=== PATIENT | female | born 1985 | race Caucasian/White ===

== ENCOUNTER 2021-10-27 23:45 | Inpatient (IN) | payer OTHER ==
[2021-10-28] MEDS ORDERED: TERBUTALINE 1 MG/ML VIAL SQ PRN (00:13)
[2021-10-28] MEDS ORDERED: LIDOCAINE 0.5% (PF) 5 MG/ML (50 ML SDV) SQ PRN (00:13)
[2021-10-28] MEDS ORDERED: METHYLERGONOVINE 0.2 MG/ML 1 ML AMP IM PRN (00:13)
[2021-10-28] MEDS ORDERED: CARBOPROST TROMETHAMINE 250 MCG/ML 1 ML AMP IM PRN (00:13)
[2021-10-28] MEDS ORDERED: OXYTOCIN 10 UNIT/ML 1 ML VIAL IM PRN (00:13)
[2021-10-28] MEDS ORDERED: LACTATED RINGERS 1,000 ML IV SCH ×2 (00:15→02:15)
[2021-10-28 00:44] LABS: Basophils # (A) 0.1 k/uL (0-0.2); Basophils % (A) 0 %; Eosinophils # (A) 0.3 k/uL (0-0.7); Eosinophils % (A) 2 %; HCT 30.7 % (34.0-46.0); HGB 9.9 gm/dL (11.4-16.0); Hypochromasia Slight; Lymphocytes # (A) 3.7 k/uL (1.0-4.8); Lymphocytes % (A) 21 %; MCH 29.7 pg (25.0-35.0); MCHC 32.5 g/dL (31.0-37.0); MCV 91.5 fL (80.0-100.0); Mean Platelet Volume 7.7; Monocytes # (A) 0.6 k/uL (0-1.0); Monocytes % (A) 4 %; Neutrophils # (A) 12.9 k/uL (1.3-7.7); Neutrophils % (A) 72 %; Platelet Count 429 k/uL (150-450); RBC 3.35 m/uL (3.80-5.40); RDW 14.8 % (11.5-15.5)
[2021-10-28] MEDS ORDERED: NALBUPHINE 10 MG/ML (1 ML AMP) ONE (01:11)
[2021-10-28] MEDS ORDERED: MORPHINE SULFATE (PF) 0.3 MG/0.3 ML SYR ONE (01:11)
[2021-10-28] MEDS ORDERED: ONDANSETRON 4 MG/2 ML VIAL ONE (01:11)
[2021-10-28] MEDS ORDERED: KETOROLAC 15 MG/ML 1 ML VIAL ONE (01:11)
--- NOTE | 2021-10-28 01:56 | P.HPOB ---
History of Present Illness H&P Date: 10/28/21 Chief Complaint: spontaneous rupture of membranes this is a 36-year-old 8 para 0524 woman with an estimated due date of 11/25/2021 who presents at 36 and one sevenths weeks gestation with spontaneous rupture of membranes and active labor. Her obstetrical history is significant for 4 previous sections. She has requested bilateral tubal ligation at the time of repeat . Her has been otherwise remarkable. On 20 week ultrasound she is noted to have an anterior placenta. Obstetrical history section 2004 36 weeks, 2008 36 weeks, 2012 34 weeks, 2013 at 36 weeks with a placental abruption and infant demise, 2019 36 weeks. Laboratory data: Blood type A+, antibody screen negative, rubella immune, VDRL nonreactive, hepatitis B surface antigen negative, HIV negative, gonorrhea and clinic cultures negative, maternal T 21 testing negative, 1 hour glucose tolerance testing abnormal, 3 hour within normal limits. Group B strep unknown. Review of Systems All systems: negative Past Medical History History of Any Multi-Drug Resistant Organisms: None Reported Additional Past Surgical History / Comment(s): 4. section Smoking Status: Current every day smoker Medications and Allergies Home Medications Medication Instructions Recorded Confirmed Type No Known Home Medications 10/28/21 10/28/21 History Allergies Allergy/AdvReac Type Severity Reaction Status Date / Time adhesive tape Allergy Rash/Hives Verified 10/28/21 00:13 latex Allergy Rash/Hives Verified 10/28/21 00:13 Exam Intake and Output 10/27/21 10/27/21 10/28/21 14:59 22:59 06:59 Other: Weight 67.132 kg this is a uncomfortable, actively laboring female who is visibly gravid. Targeted physical exam is performed. Rupture of membranes is confirmed by amnio sure test. The cervix is fingertip dilated. She is mariah every 2-4 minutes spontaneously. heart tones are currently reassuring with no repetitive heart rate decelerations. Results Result Diagrams: 10/28/21 00:30 Abnormal Lab Results - Last 24 Hours (Table) 10/28/21 Range/Units 00:30 WBC 18.0 H (3.8-10.6) k/uL RBC 3.35 L (3.80-5.40) m/uL Hgb 9.9 L (11.4-16.0) gm/dL Hct 30.7 L (34.0-46.0) % Neutrophils # 12.9 H (1.3-7.7) k/uL Assessment and Plan (1) 36 weeks gestation of Current Visit: Yes Status: Acute Code(s): Z3A.36 - 36 WEEKS GESTATION OF SNOMED Code(s): 17005264 (2) Advanced maternal age (AMA) in Current Visit: Yes Status: Acute Code(s): MWJ3115 - SNOMED Code(s): 272723270 (3) History of Current Visit: Yes Status: Acute Code(s): Z98.891 - HISTORY OF UTERINE SCAR FROM PREVIOUS SURGERY SNOMED Code(s): 302683226 (4) Family planning Current Visit: Yes Status: Acute Code(s): Z30.09 - ENCOUNTER FOR [facility] GENERAL CNSL AND ADVICE ON CONTRACEPTION SNOMED Code(s): 718839150 (5) Spontaneous rupture of membranes Current Visit: Yes Status: Acute Code(s): LJJ7246 - SNOMED Code(s): 785018130 Plan: 36-year-old 8 para 5024 woman with a history of 5 previous low transverse sections. She is admitted with spontaneous rupture of membranes and active labor. Plan is for repeat low transverse section. She is planning a bilateral tubal ligation and consents are obtained. The procedure was reviewed in detail with the patient and her partner. She was extensively counseled that this of multiple C-sections are increased. Those risks include bleeding, transfusion, hemorrhage, hysterectomy, damage to bowel, bladder, ureters and the . The patient verbalizes understanding of these risks. Consent is obtained. Of note on ultrasound there is an anterior placenta at 20 weeks. surgical team aware of possible bleeding risks with this procedure.
[2021-10-28] MEDS ORDERED: LANOLIN CREAM 5 GM TUBE TOPICAL PRN (02:01)
[2021-10-28] MEDS ORDERED: SIMETHICONE 80 MG CHEWABLE PO PRN (02:01)
[2021-10-28] MEDS ORDERED: ONDANSETRON 4 MG/2 ML VIAL IVP PRN (02:01)
[2021-10-28] MEDS ORDERED: METOCLOPRAMIDE 5 MG/ML 2 ML VIAL IVP PRN (02:01)
[2021-10-28] MEDS ORDERED: diphenhydrAMINE 50 MG CAP PO PRN (02:01)
[2021-10-28] MEDS ORDERED: diphenhydrAMINE 25 MG CAP PO PRN (02:01)
[2021-10-28] MEDS ORDERED: ZOLPIDEM 5 MG TAB PO PRN (02:01)
[2021-10-28] MEDS ORDERED: NALOXONE 0.4 MG/ML 1 ML VIAL IV PRN ×2 (02:01→08:46)
[2021-10-28] MEDS ORDERED: HYDROmorphone 1 MG/ML 1 ML SYRINGE IVP PRN (02:01)
[2021-10-28] MEDS ORDERED: diphenhydrAMINE 50 MG/ML 1 ML VIAL IVP PRN ×2 (02:01)
--- NOTE | 2021-10-28 02:01 | P.OP ---
Date of Procedure: 10/28/21 Preoperative Diagnosis: spontaneous rupture of membranes at 36 and one sevenths weeks gestation History of previous low transverse section 5 desires permanent sterility sterility Advanced maternal age Postoperative Diagnosis: same Procedure(s) Performed: repeat low transverse section with bilateral tubal ligation Anesthesia: spinal Surgeon: Nelia Monreal [employer] Director #1: Nikolas Braswell Estimated Blood Loss (ml): 300 IV fluids (ml): 800 Urine output (ml): 400 Pathology: other (placenta) Condition: stable Disposition: floor Indications for Procedure: continuous rupture of membranes at 36 and one sevenths weeks gestation, history of previous low transverse section 5, desires permanent sterility. Operative Findings: female infant in the occiput posterior position with Apgars of 8 at 1 minute and 9 at 5 minutes weighing 6 lbs. 2 oz., 2780 g. Extensive scarring of the anterior abdominal wall fascia. Very thin low uterine segment. Normal- appearing bilateral fallopian tubes and ovaries. Calcified placenta. Description of Procedure: After the patient was met preoperatively and all questions were answered, she was taken to the operating room where spinal anesthetic was administered without incident. She was then positioned, prepped and draped in the dorsal supine position with a leftward tilt. Mcneal catheter was placed. After anesthetic was confirmed adequate, a low transverse skin incision was made following the pre- existing scar. This was carried down to the underlying fascia both sharply and with the electrocautery. The fascia was then incised in the midline and extended bilaterally with the Sandra scissors. the fascia was thick and scarred. The superior aspect of the fascial incision was elevated and the underlying rectus muscles dissected off sharply and with the electrocautery. The inferior aspect of the fascial incision was also elevated and the underlying rectus muscles dissected off sharply. The muscles were adherent in the midline. These were bluntly and the peritoneum was tented up with hemostats. The peritoneum was entered sharply with the Metzenbaum scissors. The peritoneal incision was extended inferiorly and superiorly with good visualization of the bladder. the low uterine segment is noted to be very thin in appearance. The bladder blade was placed. The vesicouterine peritoneum was identified, tented up and entered sharply, the bladder flap was created both sharply and digitally. A low transverse uterine incision was then made sharply and carried down to the underlying amniotic membranes. Membranes were ruptured and clear fluid was noted. The uterine incision was extended bilaterally bluntly. The 's head was delivered from the incision without difficulty. The nose and mouth were bulb suctioned. The rest of the was delivered onto the field without difficulty. And cut and the infant was taken to the warmer. An intact, three-vessel cord placenta was then manually removed and the uterus was exteriorized. The uterus was cleared of all clot and debris. The uterine incision was delineated with Goldsmith clamps. The uterine incision was then closed in a running locked fashion with 0 Vicryl suture. Additional [id number] sutures were placed where necessary along the incision for hemostasis. The right and left fallopian tubes were positively identified and carried out to the fimbriated ends. Filshie clip clips were then applied in the mid ampullary portion of the tubes completely transecting each tube. The uterus was then returned to the abdomen and the gutters were cleared of all clot and debris. The uterine incision was reinspected and Bovie electrocautery was utilized were necessary for hemostasis. a piece of Interceed was placed over the incision. The fascial edges, peritoneal edges and rectus muscles were inspected and Bovie electrocautery utilized were necessary for hemostasis. The fascia was then closed in a running fashion with 0 Vicryl suture. The subcuticular tissue was copiously suction irrigated and Bovie electrocautery utilized were necessary for hemostasis. 3-0 Vicryl suture was utilized to reapproximate the subcuticular tissue. The skin was then closed with alicia. All counts reported to me as correct by the operating room staff at the end of the procedure. The patient received antibiotics preoperatively and Pitocin following cord clamp. Mother and were both transported from the room in stable condition.
[2021-10-28] MEDS ORDERED: OXYTOCIN 30 UNITS/500 ML NS 30 UNIT in SALINE 1 500ML.BAG IV SCH (02:15)
[2021-10-28] MEDS ORDERED: MORPHINE SULFATE 2 MG/ML SYRINGE IVP STA (04:20)
[2021-10-28] MEDS ORDERED: ACETAMINOPHEN IV (For NPO) 1,000 MG in EMPTY BAG 1 BAG IVPB SCH (06:00)
[2021-10-28] MEDS ORDERED: MORPHINE SULFATE 2 MG/ML SYRINGE IVP PRN (06:02)
[2021-10-28] MEDS: SENNOSIDES-DOCUSATE SODIUM 1 EACH TAB PO SCH ×2 (08:53→20:14)
--- NOTE | 2021-10-28 11:10 | P.PN ---
Progress Note - Text Progress Note Date: 10/28/21 Late entry from 8 AM. Patient status post repeat low transverse section and bilateral tubal ligation completed approximately 2 AM. She received a Duramorph spinal. She is complaining of severe 10 out of 10 right sided pain. She has received IV counseled or, Toradol, morphine and oral oxycodone 1. Her pain is now better controlled. On exam she is standing by the bedside. She is able to move into the bed with minimal difficulty. She has point tenderness in the right fundal region of the uterus. The uterus is firm and the abdomen is nondistended. Her incision is dry and intact. She has scant lochia. She had 1600 M hours and the Mcneal catheter prior to removal which was clear. My assessment is in adequate postoperative pain control. Patient reports she had this issue with sections in the past. She will continue with when necessary IV morphine, scheduled by mouth ibuprofen, Tylenol and oxycodone. Patient is reassured and all questions are answered.
[2021-10-28] MEDS: IBUPROFEN 600 MG TAB PO SCH ×2 (11:25→17:33)
[2021-10-28] MEDS: ACETAMINOPHEN TAB 500 MG TAB PO SCH ×3 (11:53→20:11)
[2021-10-28] MEDS ORDERED: IBUPROFEN IV 800 MG in SODIUM CHLORIDE 0.9% 250 ML IV SCH (12:00)
[2021-10-28] MEDS ORDERED: ONDANSETRON 4 MG TAB PO PRN (14:14)
[2021-10-28 21:29] VITALS: RESP 16
[2021-10-29] MEDS: IBUPROFEN 600 MG TAB PO SCH ×4 (02:21→16:21)
[2021-10-29] MEDS: ACETAMINOPHEN TAB 500 MG TAB PO SCH ×4 (05:19→20:04)
[2021-10-29 08:02] LABS: Basophils # (A) 0.1 k/uL (0-0.2); Basophils % (A) 1 %; Eosinophils # (A) 0.3 k/uL (0-0.7); Eosinophils % (A) 3 %; HCT 25.6 % (34.0-46.0); Hypochromasia Slight; Lymphocytes # (A) 2.5 k/uL (1.0-4.8); Lymphocytes % (A) 20 %; MCH 30.2 pg (25.0-35.0); MCHC 32.2 g/dL (31.0-37.0); MCV 93.9 fL (80.0-100.0); Mean Platelet Volume 7.9; Monocytes # (A) 0.6 k/uL (0-1.0); Monocytes % (A) 5 %; Neutrophils # (A) 8.3 k/uL (1.3-7.7); Neutrophils % (A) 69 %; Platelet Count 369 k/uL (150-450); Poikilocytosis Slight; RBC 2.73 m/uL (3.80-5.40); RDW 14.8 % (11.5-15.5)
[2021-10-29 08:03] LABS: HGB 8.2 gm/dL (11.4-16.0)
[2021-10-29] MEDS: SENNOSIDES-DOCUSATE SODIUM 1 EACH TAB PO SCH ×2 (08:23→20:04)
--- NOTE | 2021-10-29 10:13 | P.PNOBGPC ---
Subjective - Subjective Principal diagnosis: Repeat Interval history: Pain better controlled overnight with oral ibuprofen and oxycodone when necessary. Patient reports: Reports appetite normal, Reports voiding normally, Reports ambulating normally : doing well (Cultures pending for group B strep status unknown.) Objective - Vital Signs Latest vital signs: Vital Signs Temp Pulse Resp BP 10/29/21 08:00 98.6 F 66 16 110/73 10/29/21 00:00 98.0 F 70 16 110/74 10/28/21 20:00 98.4 F 71 16 114/80 10/28/21 16:00 98.5 F 70 14 110/75 10/28/21 13:00 16 10/28/21 12:00 98.0 F 69 14 117/75 10/28/21 11:46 14 Intake and Output 10/28/21 10/29/21 10/29/21 22:59 06:59 14:59 Other: # Voids 1 2 - Exam Extremities: Present: normal. Absent: edema Abdomen: Present: normal appearance, soft, tenderness. Absent: distention Incision: Present: normal, dry, intact (Alicia) Uterus: Present: normal, firm, tenderness - Labs Labs: Abnormal Lab Results - Last 24 Hours (Table) 10/29/21 Range/Units 06:54 WBC 12.0 H (3.8-10.6) k/uL RBC 2.73 L (3.80-5.40) m/uL Hgb 8.2 L D (11.4-16.0) gm/dL Hct 25.6 L (34.0-46.0) % Neutrophils # 8.3 H (1.3-7.7) k/uL Assessment and Plan (1) 36 weeks gestation of Current Visit: Yes Status: Acute Code(s): Z3A.36 - 36 WEEKS GESTATION OF SNOMED Code(s): 48834185 (2) Advanced maternal age (AMA) in Current Visit: Yes Status: Acute Code(s): LLQ5227 - SNOMED Code(s): 657963377 (3) History of Current Visit: Yes Status: Acute Code(s): Z98.891 - HISTORY OF UTERINE SCAR FROM PREVIOUS SURGERY SNOMED Code(s): 198039870 (4) Family planning Current Visit: Yes Status: Acute Code(s): Z30.09 - ENCOUNTER FOR [facility] GENERAL CNSL AND ADVICE ON CONTRACEPTION SNOMED Code(s): 417996269 (5) Spontaneous rupture of membranes Current Visit: Yes Status: Acute Code(s): UFA2107 - SNOMED Code(s): 445135406 Plan: Postop day 1 status post repeat low transverse section and bilateral tubal ligation. She had initially very poor pain control however this has improved. She strongly desires discharge home from the hospital at this time. The 's blood cultures are still pending. She is less than 36 hours from a repeat that was her 6th section. I counseled the patient and the father of the baby that I am surgically not clearing her for discharge this soon based on the difficult nature of her procedure, her ongoing issues with pain management and the gestational age of the . She will be reevaluated tomorrow on postop day 2 and if deemed stable can be discharged home. She also has alicia in place as her scarring was too thick for adequate closure with a subcuticular stitch. These are not yet ready to come out.
--- NOTE | 2021-10-29 11:38 | P.PN ---
Progress Note - Text Date: 10/29/2021 Time: 11:37 The patient is status post section Vital signs stable VAS:0-10 Patient has no complaints of pain. The patient incurred some minimal itching yesterday, this itching is now subsiding. Pain meds to be managed by service.
[2021-10-30] MEDS: ACETAMINOPHEN TAB 500 MG TAB PO SCH ×2 (02:23→08:04)
[2021-10-30] MEDS: IBUPROFEN 600 MG TAB PO SCH (06:39)
[2021-10-30] MEDS: SENNOSIDES-DOCUSATE SODIUM 1 EACH TAB PO SCH (08:04)
[2021-10-30 08:40] VITALS: BP 130/80; PULSE 67; TEMP 98
--- NOTE | 2021-10-30 11:11 | P.DS ---
Providers Date of admission: 10/28/21 00:13 Expected date of discharge: 10/30/21 Attending physician: aMrk Kellogg Primary care physician: Stated None - Discharge Diagnosis(es) (1) Status post section Current Visit: Yes Status: Acute Hospital Course: the patient is a 36-year-old 8 para 05-4 who presents at 36 and one sevenths weeks by good dating parameters with documented spontaneous rupture of membranes in early active labor. She has a history of 4 previous sections and was requesting repeat. All of her deliveries have been between 35 and 36 weeks. She additionally requested tubal ligation and signed consent earlier in the . On labor and delivery, she was taken the operating room where she underwent repeat low transverse section at which time there was a significant amount of abdominal scarring present. She was delivered of a viable 6 lbs. 2 oz. baby girl with Apgars of 8 at 1 minute and 9 at 5 minutes. Her postoperative course was unremarkable with vital signs being stable and her temperature was afebrile throughout. She was deemed stable for discharge on and postoperative day #2 to follow-up in the office in 2 weeks for an incision check and 6 weeks routinely. Discharge instructions included calling for any significantly increased bleeding or foul-smelling lochia, significantly increased fever or abdominal pain, perineal complaints, breast complaints, incisional complaints, or anything else that concerned her. She was additionally instructed to have nothing in the vagina for at least 6 weeks time to include intercourse. She understood her instructions and agrees follow up as noted above. Discharge medications included [id number] analgesic pain medications as well as any other home medications breech was provided with a prescription for Tylenol No. 3, #20 dispensed with no refills.8.2 and 25.6 respectively for which the patient is entirely asymptoma tic. She was recommended to take iron sulfate home daily for at least 1 month to rebuild her hemoglobin. Procedures: #1. Repeat low transverse section #2. Intraoperative bilateral tubal occlusion with Filshie clips Patient Condition at Discharge: Stable Plan - Discharge Summary New Discharge Prescriptions: No Action No Known Home Medications Discharge Medication List No Known Home Medications 10/28/21 [History] Follow up Appointment(s)/Referral(s): Mark Kellogg MD [STAFF PHYSICIAN] - 2 Weeks Discharge Disposition: HOME SELF-CARE
== END 2021-10-30 13:00 | disposition home or self-care (01) | DRG 785 ==
LOC: FBPOP 23:45 → 4FBP 10-28 00:13
PROVIDERS: ADMIT Obstetrics & Gynecology; ATTEND Obstetrics & Gynecology
PROC: 0UB70ZZ Excision of Bilateral Fallopian Tubes, Open Approach (ICD-10-PCS; 2021-10-28)
PROC: 10D00Z1 Extraction of Products of Conception, Low, Open Approach (ICD-10-PCS; principal; 2021-10-28 00:25)
DX: O34.211 Maternal care for low transverse scar from previous cesarean delivery (principal); F17.200 Nicotine dependence, unspecified, uncomplicated; O99.334 Smoking (tobacco) complicating childbirth; Z30.2 Encounter for sterilization; Z37.0 Single live birth; Z3A.36 36 weeks gestation of pregnancy
CPT/HCPCS: 59025; 84112; 85025; 86850; 86900; 86901; 99213